=== PATIENT | male | born 1930 | race Caucasian/White ===

== ENCOUNTER 2018-01-06 07:50 | Day surgery (SDC) | payer MEDICARE, BC ==
[~2018-01-06 07:50] MED LIST: Acetaminophen TAB* 325 MG PO PRN; Buffered Lidocaine 0.9% SYRIN* 5 ML/SYR SYRINGE INTRADERM ONE
[2018-01-06] MEDS ORDERED: Propofol* 10 MG/ML 20 ML BTL IV PUSH ONE (08:43)
[2018-01-06] MEDS ORDERED: fentaNYL* 50 MCG/ML 2 ML VIAL (100 MCG VIAL) ONE (08:43)
[2018-01-06] MEDS ORDERED: Lidocaine 2% PF * 5 ML VIAL ONE (08:43)
[2018-01-06 09:56] VITALS: BP 127/77
--- NOTE | 2018-01-06 10:44 | OP ---
DATE OF OPERATION: 01/06/18 - [facility] DATE OF : 08/06/28 SURGEON: Benedicto Bishop MD ANESTHESIA: Monitored anesthesia care. 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 OPERATIVE PROCEDURE: Extracapsular cataract extraction of the left eye with intraocular lens implant. IMPLANTS: SN60WF 20.0 diopter lens to the left eye. COMPLICATIONS: None. DESCRIPTION OF PROCEDURE: The patient was given phenylephrine 2.5% and cyclopentolate 1% eye drops to the operative eye in the preoperative area. The patient was brought to the operating room where a time-out was taken to identify the correct patient, site, and side of surgery. The patient's left eye was prepped and draped in the usual sterile fashion with 5% Betadine. A second time-out was taken to verify the correct patient, site, and side of surgery and correct lens selection. A lid speculum was placed to the left eye. A 1-mm paracentesis blade was used to make a clear corneal incision in the inferotemporal position. Preservative-free 1% lidocaine was injected into the anterior chamber. DisCoVisc was then injected into the anterior chamber. A 2.75-mm keratome blade was used to make a triplanar incision at the superotemporal position. A Malyugin ring was then inserted due to poor pupillary dilation and floppy iris syndrome. A cystotome initiated a capsulorrhexis, which was completed with Utrata forceps in a continuous and curvilinear manner. Hydrodissection of the lens was performed with BSS on a cannula. The lens could be spun in the capsular bag. The phacoemulsification handpiece was used with a yaqwso-sfn-ldzsged technique to remove the nucleus in its entirety with 34.22 CDE. The I/A handpiece then removed the residual cortical lens material. DisCoVisc was injected to inflate the capsular bag. The planned SN60WF 20.0 diopter lens was injected in the capsular bag. The Malyugin ring was then removed from the anterior chamber with a Bainbridge technique. The residual DisCoVisc was removed from the eye with the I/A handpiece. The corneal incisions were hydrated and no leaks occurred at physiologic pressure around 20 mmHg per palpation. The lid speculum was removed and drapes removed. Maxitrol ointment was placed to the surface of the operative eye. An adhesive patch and shield was then placed on the operative eye. The patient was taken to the postop area in stable condition. [id number]/[facility] #: [id number] MTDD
[2018-01-06] MEDS ORDERED: Phenylephrine 2.5% OPTH.SOL* 2 ML BTL ONE (13:50)
[2018-01-06] MEDS ORDERED: Neomycin/Polymy/Dex OPHTH.OIN* 3.5 GM ONE (13:50)
[2018-01-06] MEDS ORDERED: acetaZOLAMIDE TAB* 250 MG ONE (13:50)
[2018-01-06] MEDS ORDERED: Povidone Iodine 5% OPTH* 30 ML BTL ONE (13:50)
[2018-01-06] MEDS ORDERED: Ketorolac 0.5% OPHTH (NF) 0.5 % 5 ML BTL ONE (13:50)
[2018-01-06] MEDS ORDERED: Tropicamide 1% OPTH.SOL* BTL ONE (13:50)
[2018-01-06] MEDS ORDERED: Cyclopentolate 1% OPTH.SOL* 2 ML BTL ONE (13:50)
[2018-01-06] MEDS ORDERED: Lidocaine 1% MPF* 2 ML VIAL ONE (13:50)
[2018-01-06] MEDS ORDERED: Tetracaine 0.5% OPTH.SOL 4 ML* 1 DROP BTL ONE (13:50)
== END 2018-01-06 09:59 | disposition home or self-care (01) ==
LOC: OREAST 07:50
PROVIDERS: ATTEND Student in an Organized Health Care Education/Training Program
DX: H25.12 Age-related nuclear cataract, left eye (principal); H21.561 Pupillary abnormality, right eye; H21.81 Floppy iris syndrome; I45.10 Unspecified right bundle-branch block; E03.9 Hypothyroidism, unspecified; F41.8 Other specified anxiety disorders; D64.9 Anemia, unspecified
CPT/HCPCS: A9270-GY; J2704; J3010; V2632